=== PATIENT | male | born 1940 | race Hispanic/Latino ===

== ENCOUNTER 2017-06-29 17:03 | Observation (INO) | payer MEDICARE ==
[~2017-06-29] VITALS: Ht 175.3 cm; Wt 90.7 kg
--- NOTE | 2017-06-29 19:00 | Diagnostic Imaging Report ---
History:Fall, hit the head Comparison studies:None Technique: Axial images were obtained from the skull base to the vertex. Coronal and sagittal images reconstructed from the axial data. Intravenous contrast: None Findings: Scalp/skull: Left frontal scalp hematoma without underlying fracture. Extra-axial spaces: No masses. No fluid collections. Brain sulci: Mild to moderately prominent. Ventricles: Mild compensatory dilatation. No hydrocephalus. Parenchyma: Few hypodensities in the supratentorial white matter are small vessel ischemic changes. No masses, hemorrhage, acute or chronic cortical vascular insults. Sellar/suprasellar region: No abnormalities. Craniocervical junction: Patent foramen magnum. No Chiari one malformation. Incidental findings: Atherosclerotic calcifications in the carotid siphons and vertebral arteries . Impression: No acute intracranial abnormalities. Small left frontal scalp hematoma Chronic findings: 1. Mild generalized volume loss. 2. Mild supratentorial white matter small vessel ischemic changes. Signed by: DR Kyler Allen M.D. on 06/29/2017 6:57 PM
--- NOTE | 2017-06-29 19:06 | Diagnostic Imaging Report ---
History:Fall, hit head Comparison studies: None Technique: Axial images were obtained through the maxillofacial region. Coronal and sagittal images reconstructed from the axial data. Intravenous contrast: None Findings: Soft tissues: No abnormalities. Bones: No acute fractures or bone abnormalities. Chronic deformity of the nasal bones. Degenerative changes of the bilateral TMJs. Orbits: Globes: Intact Extra or intraconal abnormalities: None. Paranasal sinuses: Mild nonspecific mucosal thickening of the paranasal sinuses Atherosclerotic calcifications of the carotid siphons and carotid bulbs. No dentition. IMPRESSION: 1. Left supraorbital hematoma without facial acute fracture. 2. Nonspecific inflammatory changes of the paranasal sinuses are Signed by: DR Kyler Allen M.D. on 06/29/2017 7:03 PM
[2017-06-29 21:28] LABS: BASOPHILS % 0.1 % (0.0-1.0); HEMATOCRIT 40.5 % (38.2-49.6); HEMOGLOBIN 13.9 g/dL (14.0-18.0); LYMPHOCYTES # (AUTO) 1.2 (1.0-3.2); LYMPHOCYTES % 15.8 % (18.0-39.1); MEAN CORPUSCULAR HEMOGLOBIN 32.6 pg (28-32); MEAN CORPUSCULAR HGB CONC 34.3 g/dL (31-35); MEAN CORPUSCULAR VOLUME 95.1 fL (81-99); MONOCYTES # (AUTO) 0.7 (0.2-0.8); NEUTROPHILS # (AUTO) 5.6 (2.1-6.9); NEUTROPHILS % 74.8 % (38.7-80.0); PLATELET COUNT 112 x10e3/uL (140-360); RED BLOOD COUNT 4.26 x10e6/uL (4.3-5.7); RED CELL DISTRIBUTION WIDTH 13.1 % (11.7-14.4)
[2017-06-29 21:43] LABS: ALBUMIN 3.8 g/dL (3.5-5.0); ALBUMIN/GLOBULIN RATIO 0.8 (0.8-2.0); ANION GAP 18.4 mmol/L (8-16); CALCIUM 9.1 mg/dL (8.4-10.2); CREATININE, SERUM 2.13 mg/dL (0.72-1.25); POTASSIUM 4.4 mmol/L (3.5-5.1)
[2017-06-29 22:10] LABS: KETONES,URINE NEGATIVE (NEGATIVE); LEUKOCYTE ESTERASE ,URINE NEGATIVE (NEGATIVE); NITRITE,URINE NEGATIVE (NEGATIVE); PROTEIN,URINE DIPSTICK NEGATIVE (NEGATIVE); URINE UROBILINOGEN 0.2 mg/dL (0.2 - 1)
[2017-06-29 22:12] LABS: BILIRUBIN,URINE 1+ (NEGATIVE); CLARITY,URINE CLEAR (CLEAR); COLOR,URINE YELLOW (YELLOW)
--- NOTE | 2017-06-29 22:12 | Diagnostic Imaging Report ---
EXAM: CHEST SINGLE (PORTABLE), AP 1 view DATE: 06/29/2017 8:43 PM Time stamp on exam: 2055 INDICATION: Cough and fall COMPARISON: None FINDINGS: LINES/TUBES: None LUNGS: No consolidations or edema. PLEURA: No effusions or pneumothorax. HEART AND MEDIASTINUM: The heart is within normal size limits. Enlargement of the main pulmonary arteries. BONES AND SOFT TISSUES: No acute findings. IMPRESSION: No acute thoracic abnormality. Signed by: Dr. Lubna Phillip M.D. on 06/29/2017 10:08 PM
[2017-06-29 22:19] LABS: BACTERIA,URINE MODERATE /HPF; EPITHELIAL CELLS,URINE FEW /LPF; WBC,URINE (MAN) 0-5 /HPF (0-5)
[2017-06-30] VITALS (10 sets, daily range): BP systolic 99–130; BP diastolic 52–96
[2017-06-30] MEDS ORDERED: CORICIDIN HBP1 EAC3 (00:46)
[2017-06-30] MEDS ORDERED: DIOVAN160 MG PO (00:46)
[2017-06-30] MEDS ORDERED: TAMSULOSIN HCL0.4 MG PO (00:46)
[2017-06-30] MEDS ORDERED: SIMVASTATIN40 MG PO (00:46)
[2017-06-30] MEDS ORDERED: METOPROLOL TART25 MG PO (00:46)
[2017-06-30] MEDS ORDERED: HYDROCHLOROTHIA25 MG PO (00:46)
[2017-06-30] MEDS: SODIUM CHLORIDE 0.9% 1000ML 1,000 ML IV SCH ×3 (01:33→21:40)
[2017-06-30 08:03] LABS: BASOPHILS % 0.3 % (0.0-1.0); EOSINOPHILS % 0.5 % (0.0-6.0); HEMATOCRIT 35.5 % (38.2-49.6); HEMOGLOBIN 12.4 g/dL (14.0-18.0); LYMPHOCYTES # (AUTO) 1.5 (1.0-3.2); LYMPHOCYTES % 20.1 % (18.0-39.1); MEAN CORPUSCULAR HEMOGLOBIN 32.8 pg (28-32); MEAN CORPUSCULAR HGB CONC 34.9 g/dL (31-35); MEAN CORPUSCULAR VOLUME 93.9 fL (81-99); MONOCYTES % 13.9 % (4.4-11.3); NEUTROPHILS # (AUTO) 4.9 (2.1-6.9); NEUTROPHILS % 64.8 % (38.7-80.0); PLATELET COUNT 82 x10e3/uL (140-360); RED BLOOD COUNT 3.78 x10e6/uL (4.3-5.7); RED CELL DISTRIBUTION WIDTH 13.1 % (11.7-14.4)
[2017-06-30 08:25] LABS: ALBUMIN 3.2 g/dL (3.5-5.0); ALBUMIN/GLOBULIN RATIO 0.9 (0.8-2.0); ANION GAP 14.9 mmol/L (8-16); CALCIUM 8.2 mg/dL (8.4-10.2); CREATININE, SERUM 1.76 mg/dL (0.72-1.25); POTASSIUM 3.9 mmol/L (3.5-5.1)
[2017-06-30] MEDS: OSELTAMIVIR PHOSPHATE 75 MG CAP PO SCH ×2 (09:33→18:15)
[2017-06-30] MEDS: BENZONATATE 100 MG CAP PO SCH ×3 (09:33→20:35)
[2017-06-30] MEDS: TAMSULOSIN HCL 0.4 MG CAP PO SCH (09:33)
[2017-06-30] MEDS: METOPROLOL TARTRATE 25 MG TAB PO SCH ×2 (09:33→17:00)
[2017-06-30] MEDS: GUAIFENESIN 600MG/DEXTROMETHORPHAN 30MG TABSR PO SCH ×2 (09:33→18:15)
[2017-06-30] MEDS: AZITHROMYCIN 500MG/NS 250 ML 250 ML IV SCH (09:33)
[2017-06-30] MEDS: FAMOTIDINE 20 MG TAB PO SCH ×2 (09:33→18:15)
--- NOTE | 2017-06-30 11:34 | History and Physical ---
PRIMARY CARE PHYSICIAN: Dr. Florentino CHIEF COMPLAINT: Fall with cough. HISTORY OF PRESENT ILLNESS: This is a 76-year-old man with a remote history of stroke, who had been coughing for the past few days, and feeling very fatigued and tired. Was watching TV when he attempted to get up. He stumbled and fell hitting his face on the table. Therefore, he came to the hospital. Here, he was found to have the flu and left supraorbital hematoma and scalp hematoma. He is admitted for further evaluation and management. PAST MEDICAL HISTORY: Remote history of stroke, hypertension, hyperlipidemia, and BPH. PAST SURGICAL HISTORY: Hernia repair. ALLERGIES: PER ELECTRONIC MEDICAL RECORDS. FAMILY HISTORY/SOCIAL HISTORY: Patient is single. He has no children. Previously used to use alcohol. No alcohol at this time. He continues to smoke cigarettes of unknown amount. He lives alone. MEDICATIONS: Per electronic medical records. REVIEW OF SYSTEMS: Denies any dizziness. PHYSICAL EXAMINATION VITAL SIGNS: Have been reviewed. GENERAL: A tired-appearing man resting in bed. HEENT: Anicteric. He has dried blood along his nasal bridge. He has erythema overlying the right eyebrow region. CARDIOVASCULAR: Normal S1 and S2. LUNGS: He has mildly coarse breath sounds. Cough with deep inspiration. ABDOMEN: Soft, nontender and nondistended. EXTREMITIES: No edema or calf tenderness. NEUROLOGICAL: Alert and appropriate. He moves all extremities. SKIN: Dry. PSYCHIATRIC: Flat affect. LABS: Reviewed. MEDICATIONS: Reviewed. ASSESSMENT AND PLAN: This is a 76-year-old man with: 1. Acute bronchitis/influenza A positive: Will treat him with Tamiflu and azithromycin for 5 days. Will use antitussive medications. 2. Acute kidney injury: Will rehydrate the patient with intravenous fluids and reassess. 3. Fall with left supraorbital hematoma and left frontal scalp hematoma: There is no facial bone fracture. Will get physical therapy on board and local wound care. 4. Normocytic anemia, mild: Will follow. 5. Physical deconditioning: Physical therapy consultation. 6. Hypertension: Will use beta thiago. 7. Prophylaxis: Will use sequential compression devices and Pepcid. 8. Disposition: Monitor closely. Physical therapy consultation. Follow up labs. Check kidney function today. Job#: [id number] [place]
[2017-06-30 15:13] LABS: ANION GAP 14.2 mmol/L (8-16); CALCIUM 8.1 mg/dL (8.4-10.2); CREATININE, SERUM 1.56 mg/dL (0.72-1.25); POTASSIUM 4.2 mmol/L (3.5-5.1)
[2017-06-30] MEDS: SIMVASTATIN 40 MG TAB PO SCH (20:35)
[2017-07-01] VITALS (7 sets, daily range): BP systolic 96–143; BP diastolic 56–70
[2017-07-01] MEDS: SODIUM CHLORIDE 0.9% 1000ML 1,000 ML IV SCH ×3 (05:10→18:30)
[2017-07-01 06:29] LABS: BASOPHILS % 0.3 % (0.0-1.0); EOSINOPHILS # (AUTO) 0.1 (0.0-0.4); EOSINOPHILS % 1.3 % (0.0-6.0); HEMATOCRIT 32.5 % (38.2-49.6); LYMPHOCYTES # (AUTO) 1.8 (1.0-3.2); LYMPHOCYTES % 27.7 % (18.0-39.1); MEAN CORPUSCULAR HEMOGLOBIN 32.4 pg (28-32); MEAN CORPUSCULAR HGB CONC 33.8 g/dL (31-35); MEAN CORPUSCULAR VOLUME 95.9 fL (81-99); MONOCYTES # (AUTO) 0.7 (0.2-0.8); MONOCYTES % 10.2 % (4.4-11.3); NEUTROPHILS # (AUTO) 3.8 (2.1-6.9); NEUTROPHILS % 60.2 % (38.7-80.0); PLATELET COUNT 70 x10e3/uL (140-360); RED BLOOD COUNT 3.39 x10e6/uL (4.3-5.7); RED CELL DISTRIBUTION WIDTH 13.2 % (11.7-14.4)
[2017-07-01 06:54] LABS: CALCIUM 7.7 mg/dL (8.4-10.2); CREATININE, SERUM 1.28 mg/dL (0.72-1.25)
[2017-07-01] MEDS: FAMOTIDINE 20 MG TAB PO SCH ×2 (10:02→17:06)
[2017-07-01] MEDS: AZITHROMYCIN 500MG/NS 250 ML 250 ML IV SCH (10:02)
[2017-07-01] MEDS: TAMSULOSIN HCL 0.4 MG CAP PO SCH (10:02)
[2017-07-01] MEDS: GUAIFENESIN 600MG/DEXTROMETHORPHAN 30MG TABSR PO SCH ×2 (10:03→17:07)
[2017-07-01] MEDS: OSELTAMIVIR PHOSPHATE 75 MG CAP PO SCH ×2 (10:03→17:07)
[2017-07-01] MEDS: BENZONATATE 100 MG CAP PO SCH ×3 (10:03→20:53)
[2017-07-01] MEDS: METOPROLOL TARTRATE 25 MG TAB PO SCH ×2 (10:03→17:07)
[2017-07-01] MEDS: SIMVASTATIN 40 MG TAB PO SCH (20:53)
[2017-07-02] VITALS (8 sets, daily range): BP systolic 129–166; BP diastolic 64–82
[2017-07-02] MEDS: SODIUM CHLORIDE 0.9% 1000ML 1,000 ML IV SCH ×2 (03:15→18:34)
[2017-07-02 06:01] LABS: BASOPHILS % 0.2 % (0.0-1.0); EOSINOPHILS # (AUTO) 0.1 (0.0-0.4); EOSINOPHILS % 1.4 % (0.0-6.0); HEMATOCRIT 31.9 % (38.2-49.6); HEMOGLOBIN 10.8 g/dL (14.0-18.0); LYMPHOCYTES # (AUTO) 1.8 (1.0-3.2); MEAN CORPUSCULAR HEMOGLOBIN 32.3 pg (28-32); MEAN CORPUSCULAR HGB CONC 33.9 g/dL (31-35); MEAN CORPUSCULAR VOLUME 95.5 fL (81-99); MONOCYTES # (AUTO) 0.5 (0.2-0.8); MONOCYTES % 7.7 % (4.4-11.3); NEUTROPHILS # (AUTO) 4.2 (2.1-6.9); NEUTROPHILS % 63.2 % (38.7-80.0); PLATELET COUNT 74 x10e3/uL (140-360); RED BLOOD COUNT 3.34 x10e6/uL (4.3-5.7)
[2017-07-02 06:17] LABS: BLOOD UREA NITROGEN 17 mg/dL (7-26); BUN/CREATININE RATIO 18 (6-25); CARBON DIOXIDE 22 mmol/L (22-29); CHLORIDE 109 mmol/L (98-107); CREATININE, SERUM 0.97 mg/dL (0.72-1.25); EST GLOMERULAR FILTRATION RATE > 60 ML/MIN (60-); GLUCOSE 95 mg/dL (74-118); SODIUM 136 mmol/L (136-145)
--- NOTE | 2017-07-02 07:59 | Progress Note ---
DATE: July 02, 2017 TIME: 7:16 a.m. OVERNIGHT: No events. REVIEW OF SYSTEMS: Denies any chest pain. PHYSICAL EXAMINATION: VITAL SIGNS: Reviewed. GENERAL APPEARANCE: Tired-appearing man resting in bed. HEENT: Anicteric. CARDIOVASCULAR: Normal S1 and S2. LUNGS: Moderate breath sounds. ABDOMEN: Soft, nontender, nondistended. EXTREMITIES: No edema or calf tenderness. NEUROLOGICAL: Alert and oriented x3. Moves all extremities. SKIN: Dry. PSYCHIATRIC: Flat affect. LABS: Reviewed. MEDICATIONS: Reviewed. ASSESSMENT: A 76-year-old man: 1. Acute bronchitis/influenza A positive. 2. Acute kidney injury. 3. Fall with left supraorbital hematoma and left frontal scalp hematoma. 4. Normocytic anemia. 5. Physical deconditioning. 6. Hypertension. PLAN: 1. Continue azithromycin and Tamiflu. 2. Continue to monitor renal function. 3. Continue physical therapy. 4. Follow up blood count. 5. Hemoglobin relatively stable, although it has trended down. Will continue to follow. 6. Renal function continues to improve. 7. Discharge planning. Job#: [id number]
[2017-07-02] MEDS: FAMOTIDINE 20 MG TAB PO SCH ×2 (08:39→17:28)
[2017-07-02] MEDS: AZITHROMYCIN 500MG/NS 250 ML 250 ML IV SCH (08:39)
[2017-07-02] MEDS: TAMSULOSIN HCL 0.4 MG CAP PO SCH (08:39)
[2017-07-02] MEDS: BENZONATATE 100 MG CAP PO SCH ×3 (08:40→21:01)
[2017-07-02] MEDS: GUAIFENESIN 600MG/DEXTROMETHORPHAN 30MG TABSR PO SCH ×2 (08:40→17:28)
[2017-07-02] MEDS: METOPROLOL TARTRATE 25 MG TAB PO SCH ×2 (08:40→17:28)
[2017-07-02] MEDS: OSELTAMIVIR PHOSPHATE 75 MG CAP PO SCH ×2 (08:40→17:28)
[2017-07-02] MEDS: SIMVASTATIN 40 MG TAB PO SCH (21:01)
[2017-07-03] VITALS (8 sets, daily range): BP systolic 124–160; BP diastolic 60–85
[2017-07-03] MEDS: HYDROCODONE/APAP 5MG-325MG TAB PO PRN ×2 (04:44→19:28)
[2017-07-03] MEDS: SODIUM CHLORIDE 0.9% 1000ML 1,000 ML IV SCH ×3 (05:51→23:02)
[2017-07-03] MEDS: AZITHROMYCIN 500MG/NS 250 ML 250 ML IV SCH (08:43)
[2017-07-03] MEDS: OSELTAMIVIR PHOSPHATE 75 MG CAP PO SCH ×2 (08:43→16:22)
[2017-07-03] MEDS: BENZONATATE 100 MG CAP PO SCH ×3 (08:43→20:45)
[2017-07-03] MEDS: TAMSULOSIN HCL 0.4 MG CAP PO SCH (08:43)
[2017-07-03] MEDS: METOPROLOL TARTRATE 25 MG TAB PO SCH ×2 (08:43→16:22)
[2017-07-03] MEDS: GUAIFENESIN 600MG/DEXTROMETHORPHAN 30MG TABSR PO SCH ×2 (08:43→16:22)
[2017-07-03] MEDS: FAMOTIDINE 20 MG TAB PO SCH ×2 (08:43→16:22)
[2017-07-03] MEDS ORDERED: TESSALON PERLE100 MG PO (18:18)
[2017-07-03] MEDS ORDERED: MUCINEX DM ER1 EACH PO (18:18)
[2017-07-03] MEDS ORDERED: TAMIFLU75 MG PO (18:18)
[2017-07-03] MEDS ORDERED: FAMOTIDINE20 MG PO (18:18)
[2017-07-03] MEDS ORDERED: ACETAMINOP325 MG/10 PO (18:18)
[2017-07-03] MEDS: SIMVASTATIN 40 MG TAB PO SCH (20:45)
[2017-07-04] VITALS: BP 168/75
[2017-07-04 04:00] VITALS: BP 176/77
--- NOTE | 2017-07-04 06:58 | Progress Note ---
DATE: July 04, 2017 TIME: 6:31 a.m. OVERNIGHT: No events. REVIEW OF SYSTEMS: Denies any dizziness. PHYSICAL EXAMINATION VITAL SIGNS: Reviewed. Blood pressure is 176/77. GENERAL: A tired-appearing man resting in bed. HEENT: Anicteric. He has a bruise over the nasal bridge. CARDIOVASCULAR: Normal S1 and S2. LUNGS: Moderate breath sounds. ABDOMEN: Soft, nontender and nondistended. EXTREMITIES: No edema or calf tenderness. NEUROLOGICAL: Alert. He moves all extremities. SKIN: Dry. PSYCHIATRIC: Flat affect. LABS: Reviewed. MEDICATIONS: Reviewed. ASSESSMENT: This is a 76-year-old man with: 1. Acute bronchitis/influenza A positive. 2. Acute kidney injury. 3. Fall with left supraorbital hematoma and left frontal scalp hematoma. 4. Normocytic anemia. 5. Physical deconditioning. 6. Hypertension. PLAN 1. Continue Tamiflu. He received azithromycin. 2. Continue physical therapy. 3. Follow up blood counts. 4. Titrate beta thiaog for blood pressure control. 5. Continue Flomax. 6. Discharge planning. Awaiting skilled facility placement. Job#: [id number] [place]
--- NOTE | 2017-07-04 07:01 | Progress Note ---
DATE: July 03, 2017 TIME: 5 p.m. OVERNIGHT: No events. REVIEW OF SYSTEMS: Denies any dizziness or chest pain. PHYSICAL EXAMINATION VITAL SIGNS: Reviewed. GENERAL: A tired-appearing man resting in bed. HEENT: Anicteric. CARDIOVASCULAR: Normal S1 and S2. LUNGS: Moderate breath sounds. ABDOMEN: Soft and nontender. EXTREMITIES: No edema. SKIN: Dry. PSYCHIATRIC: Flat affect. LABS: Reviewed. MEDICATIONS: Reviewed. ASSESSMENT: A 76-year-old man with: 1. Acute bronchitis/influenza A. 2. Acute kidney injury. 3. Fall with left supraorbital hematoma and left frontal scalp hematoma. 4. Normocytic anemia. 5. Physical deconditioning. 6. Hypertension. PLAN 1. Continue antibiotics and Tamiflu. 2. Continue monitoring renal function. 3. Continue physical therapy. 4. Discharge planning. Job#: [id number] [place]
--- NOTE | 2017-07-04 07:04 | Progress Note ---
DATE: July 01, 2017 TIME: 6:40 a.m. OVERNIGHT: No events. REVIEW OF SYSTEMS: Denies any dizziness. PHYSICAL EXAMINATION VITAL SIGNS: Reviewed. GENERAL: A tired-appearing man resting in bed. HEENT: Anicteric. CARDIOVASCULAR: Normal S1 and S2. LUNGS: Moderate breath sounds. ABDOMEN: Soft. EXTREMITIES: No edema. SKIN: Dry. PSYCHIATRIC: Flat affect. LABS: Reviewed. MEDICATIONS: Reviewed. ASSESSMENT: A 76-year-old man with: 1. Acute bronchitis/influenza A positive. 2. Acute kidney injury. 3. Fall with left supraorbital hematoma and left frontal scalp hematoma. 4. Normocytic anemia. 5. Physical deconditioning. PLAN 1. Continue azithromycin and Tamiflu. 2. Continue monitoring renal function. 3. Continue physical therapy. 4. Follow up [facility]. Job#: [id number] [place]
[2017-07-04 08:21] VITALS: BP 161/72
[2017-07-04] MEDS ORDERED: METOPROLOL TARTRATE 25 MG TAB PO SCH (09:00)
[2017-07-04] MEDS: FAMOTIDINE 20 MG TAB PO SCH (09:42)
[2017-07-04] MEDS: SODIUM CHLORIDE 0.9% 1000ML 1,000 ML IV SCH ×2 (09:42→15:02)
[2017-07-04] MEDS: AZITHROMYCIN 500MG/NS 250 ML 250 ML IV SCH (09:42)
[2017-07-04] MEDS: TAMSULOSIN HCL 0.4 MG CAP PO SCH (09:42)
[2017-07-04] MEDS: OSELTAMIVIR PHOSPHATE 75 MG CAP PO SCH (09:43)
[2017-07-04] MEDS: GUAIFENESIN 600MG/DEXTROMETHORPHAN 30MG TABSR PO SCH (09:43)
[2017-07-04] MEDS: BENZONATATE 100 MG CAP PO SCH (09:43)
[2017-07-04 10:07] VITALS: BP 161/72
[2017-07-04 12:26] VITALS: BP 178/81
[2017-07-04 16:37] VITALS: BP 130/61
--- NOTE | 2017-07-26 13:07 | Discharge Summary ---
PRINCIPAL DIAGNOSES 1. Acute bronchitis/influenza A positive infection. 2. Acute kidney injury. 3. Fall with supraorbital hematoma. 4. Left frontal scalp hematoma. 5. Normocytic anemia. 6. Physical deconditioning. SECONDARY DIAGNOSIS: Hypertension. CHIEF COMPLAINT: Fall and cough. HISTORY OF PRESENT ILLNESS: This is a 76-year-old man with fall and cough. Refer to the [facility] for further details. HOSPITAL COURSE: Patient was found to be positive for influenza A. Also, had acute bronchitis treated with antibiotics and Tamiflu. Acute kidney injury treated with IV fluids. Had a fall with left supraorbital hematoma and left frontal scalpel hematoma. Patient also had physical deconditioning and normocytic anemia. Received physical therapy and did well. Patient was subsequently transitioned to [facility] for continued physical therapy. DISCHARGE MEDICATIONS: Per electronic medical records. FOLLOWUP: Primary care doctor in 1 week. CONDITION ON DISCHARGE: Stable and improving. CAITLIN WALLACE MD Job#: [id number] [place]
== END 2017-07-04 16:43 ==
LOC: ER 17:03 → IMCU 23:08 → UNDOADMOB 23:11 → ERHOLD 23:11 → IMCU 07-01 10:47
PROVIDERS: ADMIT Internal Medicine; ATTEND Internal Medicine
DX: J10.1 Influenza due to other identified influenza virus with other respiratory manifestations (principal); N17.9 Acute kidney failure, unspecified; S00.83XA Contusion of other part of head, initial encounter; S00.03XA Contusion of scalp, initial encounter; W01.190A Fall on same level from slipping, tripping and stumbling with subsequent striking against furniture, initial encounter; Y92.009 Unspecified place in unspecified non-institutional (private) residence as the place of occurrence of the external cause; E86.0 Dehydration; D64.9 Anemia, unspecified; R53.81 Other malaise; E78.5 Hyperlipidemia, unspecified; I10 Essential (primary) hypertension; N40.0 Benign prostatic hyperplasia without lower urinary tract symptoms; F17.210 Nicotine dependence, cigarettes, uncomplicated; Z86.73 Personal history of transient ischemic attack (TIA), and cerebral infarction without residual deficits
CPT/HCPCS: 36415 ×4; 70450; 70486; 71010; 80048 ×3; 80053 ×2; 81001; 85025 ×4; 87086; 87400; 93005; 97110; 97116 ×4; 97162; 99284; G0378 ×6; J0456 ×5; J7030 ×5; 71045